=== PATIENT | male | born 1965 | race Caucasian/White ===

== ENCOUNTER 2019-08-03 11:50 | Emergency (ER) | payer OTHER ==
[~2019-08-03] VITALS: Ht 177.8 cm; Wt 97.1 kg
[~2019-08-03 11:50] MED LIST: AMLO-311 PO
[2019-08-03 12:00] VITALS: BP 148/107
--- NOTE | 2019-08-03 12:22 | PHYS DOC ---
Past History Past Medical History: Gallstones, GERD, Hypertension Past Surgical History: Cholecystectomy Smoking: Non-smoker Alcohol Use: Occasionally Drug Use: None Adult General Chief Complaint Chief Complaint: FLANK PAIN HPI HPI Patient is a 54-year-old male who presents to the ER with complaint of left-sided back/flank pain that started early this morning while at work without known injury. His pain was 7/10 initially and he took 2 Advil and his pain is currently 2/10. Is not worse with movement or inspiration. He has no dysuria or hematuria. No history of ureteral stones. No nausea vomiting or diarrhea. Review of Systems Review of Systems All other systems were reviewed and found to be within normal limits, except as documented in this note. Allergies Allergies Allergies Coded Allergies Type Severity Reaction Last Updated Verified No Known Drug Allergies 07/06/13 No Physical Exam Physical Exam Constitutional: Well developed, well nourished, no acute distress, non-toxic appearance. [] HENT: Normocephalic, atraumatic, bilateral external ears normal, oropharynx moist, no oral exudates, nose normal. [] Eyes: PERRLA, EOMI, conjunctiva normal, no discharge. [] Neck: Normal range of motion, no tenderness, supple, no stridor. [] Cardiovascular:Heart rate regular rhythm, no murmur [] Lungs & Thorax: Bilateral breath sounds clear to auscultation [] Abdomen: Bowel sounds normal, soft, no tenderness, no masses, no pulsatile masses. [] Skin: Warm, dry, no erythema, no rash. [] Back: No tenderness, no CVA tenderness. [] Extremities: No tenderness, no cyanosis, no clubbing, ROM intact, no edema. [] Neurologic: Alert and oriented X 3, normal motor function, normal sensory function, no focal deficits noted. [] Psychologic: Affect normal, judgement normal, mood normal. [] Current Patient Data Vital Signs Vital Signs Date Time Temp Pulse Resp B/P (MAP) Pulse Ox O2 Delivery O2 Flow Rate FiO2 08/03/19 12:00 98.1 92 20 148/107 (121) 98 Room Air EKG EKG [] Radiology/Procedures Radiology/Procedures [] Course & Med Decision Making Course & Med Decision Making Pertinent Labs and Imaging studies reviewed. (See chart for details) Patient is seen for backslash flank pain. His examination is not reveal significant muscle tenderness or spasm. Will obtain a urinalysis for further evaluation. Urinalysis shows trace blood. Patient's pain is 1/10. We discussed further testing options including a CT scan and labs. At this time the patient would like to forego further testing since his pain is controlled and he will take Advil twice daily and have also prescribed him prednisone. If his symptoms worsen he may return to the ER for further testing or evaluation. Dragon Disclaimer Dragon Disclaimer This electronic medical record was generated, in whole or in part, using a voice recognition dictation system. Departure Departure: Impression: Primary Impression: Left flank pain Disposition: HOME, SELF-CARE Condition: STABLE Referrals: GAVIN CUELLAR MD (PCP) Follow up for worsening symptoms. Additional Instructions: Please take Advil twice daily in the morning and in the evening. Please return to the ER if your symptoms worsen or follow-up with your doctor. Scripts Prednisone (PREDNISONE) 50 Mg Tablet 50 MG PO DAILY for Flank Pain for 5 Days, #5 TAB Prov: LAURA IBANEZ DO 08/03/19 LAURA IBANEZ DO Aug 03, 2019 12:22
[2019-08-03 13:06] LABS: BILIRUBIN,URINE NEG (NEG); CLARITY,URINE CLEAR; COLOR,URINE YELLOW; GLUCOSE,URINE 100 mg/dL (NEG)
[2019-08-03 13:07] LABS: BACTERIA,URINE 0 /HPF (0-FEW); HYALINE CASTS, URINE OCC /HPF; NITRITE,URINE NEG (NEG); SQUAMOUS EPITHELIAL CELL,UR FEW /LPF; UROBILINOGEN,URINE 0.2 mg/dL (0.2 mg/dL); WBC,URINE OCC /HPF (0-4)
[2019-08-03] MEDS ORDERED: PRED50TA PO (13:28)
== END 2019-08-03 13:31 | disposition home or self-care (01) ==
LOC: ER 11:50
DX: R10.9 Unspecified abdominal pain (principal); K21.9 Gastro-esophageal reflux disease without esophagitis; I10 Essential (primary) hypertension; Z90.49 Acquired absence of other specified parts of digestive tract
CPT/HCPCS: 81001; 99283